=== PATIENT | female | born 1955 | race Caucasian/White ===

== ENCOUNTER 2019-05-11 06:30 | Day surgery (SDC) | payer BC ==
[2019-05-11] MEDS ORDERED: Ringers Lactate 1,000 ML IV ONE (07:10)
[2019-05-11] MEDS ORDERED: CEFAZOLIN/SWI 1gm 1 GM/10 ML SYR ONE (07:11)
[2019-05-11] MEDS ORDERED: PROPOFOL 200 MG/20 ML VIAL IV ONE (07:32)
[2019-05-11] MEDS ORDERED: MIDAZOLAM HCL 2 MG/2 ML INJ ONE (07:33)
[2019-05-11] MEDS ORDERED: FENTANYL CITR 100 MCG/2 ML ONE (07:33)
[2019-05-11] MEDS ORDERED: LIDOCAINE 2% MPF 5 ML VIAL ONE (07:33)
[2019-05-11] MEDS ORDERED: ONDANSETRON 4 MG/2 ML VIAL ONE (07:34)
[2019-05-11] MEDS ORDERED: BUPIVACAINE 0.5% PF 10 ML VIAL ONE (07:42)
--- NOTE | 2019-05-11 08:20 | P.BOP ---
Preoperative diagnosis: infected back subcutaneous mass Postoperative diagnosis: same Primary procedure: Excisional biopsy of infected back subcutaneous mass 6 x 6 x 1.7 cm Secondary procedure: with abscess drainage Estimated blood loss: <10cc Specimen: mass, culture Findings: infected back subcutaneous mass with abscess Anesthesia: General Complications: None Transferred to: Recovery Room Condition: Good
[2019-05-11] MEDS: HYDROMORPHONE HCL 1 MG/ML INJ ONE ×2 (08:36→08:41)
[2019-05-11 09:21] VITALS: BP 113/59; TEMP 98; O2SAT 98
[2019-05-11] MEDS ORDERED: CODEINE 30MG/APAP 300MG TAB ONE (09:53)
--- NOTE | 2019-05-11 10:42 | EKG ---
Test Date: 2019-05-11 Test Time: 07:25:18 Notch Machine Operator: CHRIS MEASUREMENT RESULTS: Intervals: Rate: 61 NV: 178 QRSD: 86 QT: 418 QTc: 420 [address] [place]: P: 59 NV: 178 QRS: 15 T: 55 INTERPRETIVE STATEMENTS: Normal sinus rhythm Normal ECG Compared to ECG 12/04/2014 20:28:38 No significant changes Electronically Signed On 05-11-19 10:41:20 CDT by Kameron Maynard
--- NOTE | 2019-05-11 15:02 | OP ---
Date of Procedure: 05/11/2019 Surgeon: Dakotah Johnson MD Preoperative Diagnoses: Infected back subcutaneous mass with abscess and cellulitis. Postoperative Diagnoses: Infected back subcutaneous mass with abscess and cellulitis. Procedure: Excisional biopsy of infected back, subcutaneous mass, 6 x 6 x 1.7 cm with drainage of an abscess. Specimen: Culture and infected mass. Anesthesia: General plus local. Indications: This is a case of a 64-year-old patient, who comes to us few hours ago to our office wi th a large infected mass with purulent discharge. Very tender, red. The patient wanted that excised with infection too, so benefits, alternatives, and risks of excisional biopsy, infected mass was ful ly explained to the patient, which include but are not limited to infection, bleeding, damage to deyvi cent structures, anesthesia complication, nonhealing wound, IN, and even . She also understands this may not relieve any symptoms. She might need more than one surgical intervention. She underst ood. She will require wound care. She signed a consent. Description Of Procedure: The patient was brought to the operating room, placed in supine position. Anesthesia was done without complication. Back area was prepped and draped in a sterile fashion. A time-out was called. The patient was placed in lateral decubitus position with proper protection, a nd then area was prepped and draped in a sterile fashion, and a wedge incision was made in the skin. The mass was large, so we had to move the entire mass. Deep inside we found an abscess that we had to drain also. This goes about 6 x 6 x 1.7 cm at least. Hemostasis obtained. Culture was obtained. Mass was sent for evaluation and pathology, and the area were packed with wet-to-dry dressing after injected for local anesthetic, and obtaining hemostasis. The patient tolerated the procedure well. The patient was sent to Recovery in stable condition. Diagnosis: Infected back subcutaneous mass. Procedure: Excisional biopsy of infected back subcutaneous mass. Disposition: Home. Discharge Instructions: Activity as tolerated. No heavy lifting. Followup in my office in 1 week. Call for appointment [phone]. The patient already has medications at home, so we will add lidocain e viscous, and she wants to use that the first few days on dressing changes. She may take a shower, dressings off, wet-to-dry normal saline daily. The patient stated that she has a family member who w ill do that for her. RG/NIYA Voice ID: [id number] Report ID: [id number]
== END 2019-05-11 10:15 | disposition home or self-care (01) ==
LOC: OR 06:30
PROVIDERS: ATTEND Surgery
PROC: 0JB70ZX Excision of Back Subcutaneous Tissue and Fascia, Open Approach, Diagnostic (ICD-10-PCS; principal; 2019-05-11 08:00)
DX: L72.0 Epidermal cyst (principal); Z01.812 Encounter for preprocedural laboratory examination; L03.312 Cellulitis of back [any part except buttock and flank]; L02.212 Cutaneous abscess of back [any part, except buttock and flank]; I11.9 Hypertensive heart disease without heart failure; F17.290 Nicotine dependence, other tobacco product, uncomplicated; Z79.899 Other long term (current) drug therapy
CPT/HCPCS: 87070; 87075; 87205; 88304; 93005; J0690; J1170; J2250; J2405; J2704; J3010

== ENCOUNTER 2019-10-06 13:56 | Emergency (ER) | payer BC, SELFPAY ==
[2019-10-06] MEDS ORDERED: KETOROLAC 30 MG/ML INJ ONE (15:08)
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
[2019-10-06 16:54] VITALS: BP 161/74; TEMP 98.7; O2SAT 98
== END 2019-10-06 16:23 | disposition home or self-care (01) ==
LOC: ER 13:56
DX: M54.13 Radiculopathy, cervicothoracic region (principal); V43.52XA Car driver injured in collision with other type car in traffic accident, initial encounter; Y93.89 Activity, other specified; Y92.410 Unspecified street and highway as the place of occurrence of the external cause
CPT/HCPCS: 72125

== ENCOUNTER 2023-04-16 06:40 | Day surgery (SDC) | payer OTHER ==
[2023-04-16] MEDS ORDERED: CEFAZOLIN SODIUM 1 GM/VIAL ONE (07:01)
[2023-04-16] MEDS ORDERED: Ringers Lactate 1,000 ML IV ONE ×3 (07:01→12:26)
[2023-04-16] MEDS ORDERED: ROCURONIUM 50 MG/5 ML VIAL IV ONE (07:55)
[2023-04-16] MEDS ORDERED: propofoL 200 MG/20 ML VIAL IV ONE (07:55)
[2023-04-16] MEDS ORDERED: LIDOCAINE 2% MPF 5 ML VIAL ONE (07:56)
[2023-04-16] MEDS ORDERED: FENTANYL CITR 250 MCG/5 ML ONE (07:56)
[2023-04-16] MEDS ORDERED: KETOROLAC 30 MG/ML INJ ONE (07:56)
[2023-04-16] MEDS ORDERED: ONDANSETRON 4 MG/2 ML VIAL ONE (07:56)
[2023-04-16] MEDS ORDERED: dexAMETHasone 10 MG/ML VIAL ONE (07:56)
[2023-04-16] MEDS ORDERED: MIDAZOLAM HCL 2 MG/2 ML INJ ONE (07:56)
[2023-04-16] MEDS ORDERED: SUCCINYLCHOLINE 20 MG/ML (10 ML) IV ONE (08:01)
[2023-04-16] MEDS ORDERED: EPHEDRINE SULF 50 MG/ML VIAL ONE (09:05)
[2023-04-16] MEDS ORDERED: LIDOCAINE HCL/EPINEPHRINE 20 ML MDV ONE (09:53)
[2023-04-16] MEDS ORDERED: Mastisol Adhesive Liq ONE (12:05)
--- NOTE | 2023-04-16 12:27 | P.BOP ---
Preoperative diagnosis: FRAN Postoperative diagnosis: FRAN Primary procedure: hypoglossal nerve stimulator [employer] Sales Specialist: NONE,NONE Estimated blood loss: 15-20ml Specimen: none Findings: textbook anatomy Anesthesia: General Complications: None Implants: Inspire Fluids & blood products: 2L Condition: Good
[2023-04-16] MEDS: HYDROMORPHONE HCL 1 MG/ML INJ ONE ×3 (12:51→13:04)
--- NOTE | 2023-04-16 13:37 | RAD REPORT ---
EXAM DESCRIPTION: RAD - Chest Pa And Lat (2 Views) - 04/16/2023 1:30 pm CLINICAL HISTORY: S/P INSERT OF HYPOGLOSSAL NERVE STIMULATOR (R)SIDE COMPARISON: Chest Pa And Lat (2 Views) dated 05/10/2019; CHEST SINGLE VIEW dated 12/04/2014; CHEST SIN GLE VIEW dated 09/22/2014; CHEST SINGLE VIEW dated 09/21/2014 TECHNIQUE: PA and lateral views of the chest were obtained. FINDINGS: The lungs are clear. Heart size is normal and central vasculature is within normal limits. No pleural effusion or pneumothorax seen. No acute bony finding noted. Right chest wall nerve stimul ator pack in place. IMPRESSION: No acute cardiopulmonary process.
--- NOTE | 2023-04-16 13:40 | RAD REPORT ---
EXAM DESCRIPTION: RAD - Neck Soft Tissue - 04/16/2023 1:30 pm CLINICAL HISTORY: Status post insertion of a hypoglossal nerve stimulator COMPARISON: CT neck 10/06/2019 TECHNIQUE: AP and lateral views of the neck soft tissues. FINDINGS: The right sided nerve stimulator electrode, terminates at the level of the upper right mignon e of the neck. No electrode discontinuity or abnormal kinking. Anterior plating hardware present at C 5-C7. Prevertebral soft tissues and upper airway are unremarkable. IMPRESSION: Satisfactory positioning of right-sided nerve stimulator electrode as above.
[2023-04-16] MEDS ORDERED: TRAMADOL HCL 50 MG TAB ONE (14:25)
[2023-04-16 16:03] VITALS: BP 133/68; TEMP 97.5; O2SAT 97
--- NOTE | 2023-04-20 07:30 | P.OP ---
Date of Service: 04/16/23 Surgeon: Dr. Lacy Patel Referring physician: Dr. Tinsley CPT: 23597 insertion of hypoglossal nerve neurostimulator electrode and generator and breathing sensor electrode Preoperative diagnosis: Obstructive sleep apnea with positive airway pressure intolerance Postoperative diagnosis: Same Anesthesia: General via endotracheal tube Estimated blood loss: 15 to 20 mL Complications: None Intraoperative findings: Textbook anatomy of the hypoglossal nerve, musculature and chest wall. Brief clinical history: This is a 68-year-old patient with a history of moderate to severe obstructive sleep apnea and an associated body mass index of 28.6. The patient was intolerant and unable to achieve benefit from positive pressure therapy. The patient has passed the clinical, polysomnographic, and endoscopic screening criteria and presents today for implant Procedure description: The patient was brought to the operating room and placed under general anesthesia via endotracheal intubation. The head of bed was turned 180 degrees. The patient's neck and external anatomy was palpated and examined with planned incisions marked with a surgical pen. Monitoring electrodes were placed within the genioglossus and hypoglossal muscle and connected to the NIM box for intraoperative nerve monitoring. The grounding electrode was placed in the patient's left shoulder. An additional electrode was placed in the right lower lip to monitor the marginal mandibular nerve. The patient's face, neck, and chest was prepped and draped in a sterile fashion with the head turned to the left for best exposure of the right neck. A modified submandibular incision was made through the skin, approximately 2 cm below the inferior aspect of the mandible. Dissection was carried down through the subcutaneous tissue and platysma. The platysma was divided and additional dissection was carried out for identification of the anterior/inferior border of the submandibular gland. The digastric tendon was identified. 2 silk sutures were placed in the digastric tendon to aid in inferior and anterior retraction. Dissection continued down into the digastric triangle and the posterior border of the mylohyoid muscle was freed and retracted anteriorly. With balanced retraction, the hypoglossal nerve was identified and carefully dissected up towards the floor of the mouth. The superior/posterior branches innervating the hyoglossus muscle were identified visually with anatomic clues and NIM stimulation. Once the anterior/inferior branches of the hypoglossal nerve were isolated, the cuff electrode for the hypoglossal nerve stimulator ([id number]; [id number]) was placed distal to these branches innervating the genioglossus, transverse, and vertical muscles. The stimulation lead was anchored to the digastric tendon using the 2 previously placed silk sutures. Slack between the cuff and the anchor was gently tucked deep to the submandibular gland. A second 5 cm incision was made in the right upper chest over the second intercostal space, approximately 3 cm lateral to the sternal margin. Dissection was carried down through the skin and subcutaneous tissue to the fascia of the pectoralis muscle. A suprafascial inferior pocket for the generator was created with blunt dissection and the LigaSure. The pectoralis major fascia was diss ected directly over the second intercostal space with subsequent blunt dissection through the muscle body. The pectoralis was retracted to expose the fatty layer just superficial to the external intercostal muscle. The fatty layer was carefully and bluntly dissected to expose the external intercostal muscles. A small fasciotomy through the external intercostals was performed and the respiratory sensing lead (C1778; [id number]) was advanced with the sensor facing the pleura into the interfascial plane between the external and internal intercostals. The sensing lead was anchored with 3-0 silk to the fascia of the external intercostals. Secondary anchoring sutures of 3-0 silk were placed to the pectoralis major fascia, allowing adequate slack between the anchors. The stimulation lead was then tunneled in a subplatysmal plane with blunt dissection under direct visualization and brought out to the subclavicular pocket where both the stimulation lead and respiratory sensing lead were connect ed to the implantable pulse generator, using the 2 person, 3 handed approach. The implantable pulse generator (C1767; [id number]) was placed in the subclavicular subcutaneous pocket ensuring lead body was deep to the generator and secured with air knots to the pectoralis fascia using 2-0 silk suture. Diagnostic evaluation confirmed good placement of the stimulation cuff as demonstrated by activation of the genioglossus, and transverse and vertical muscles resulting in unhindered, stiffened tongue protrusion confirmed visually. Diagnostic evaluation revealed an adequate initial sensing. The orientation of the sensing lead was confirmed correct. The lead was palpated and felt to be somewhat inferior and medial. With gentle pressure the lead was repositioned slightly more laterally and superiorly but removal was not required. After this modification, diagnostic evaluation confirmed good respiratory sensor placement as demonstrated by sensing waveform with good rise and fall associated with patient respirations. All the wounds were thoroughly irrigated and closed in 3 layers with deep Polysorb sutures and 4-0 Monocryl subcuticular sutures. Mastisol and Steri- Strips were applied followed by pressure dressings. The patient was awakened, extubated, and transferred to the recovery room in stable condition. I was present for and performed the entire procedure. All sponge and needle counts were confirmed correct by the operating room staff prior to final closure. Postoperative plan: The patient will be discharged home later today in the care of her family and follow-up with Dr. Patel in 10 days for wound check and suture removal if required. She will follow-up with the prospecting observer in about 6 weeks for planned activation of the device.
== END 2023-04-16 14:53 | disposition home or self-care (01) ==
LOC: OR 06:40
PROVIDERS: ATTEND Otolaryngology
PROC: XWHD7Q7 Insertion of Neurostimulator Lead into Mouth and Pharynx, Via Natural or Artificial Opening, New Technology Group 7 (ICD-10-PCS; principal; 2023-04-16 08:00)
DX: G47.33 Obstructive sleep apnea (adult) (pediatric) (principal); J45.909 Unspecified asthma, uncomplicated; G47.419 Narcolepsy without cataplexy; I10 Essential (primary) hypertension; E66.3 Overweight; E03.9 Hypothyroidism, unspecified; M19.90 Unspecified osteoarthritis, unspecified site; F90.9 Attention-deficit hyperactivity disorder, unspecified type; Z99.81 Dependence on supplemental oxygen; Z79.899 Other long term (current) drug therapy; Z87.891 Personal history of nicotine dependence; Z85.828 Personal history of other malignant neoplasm of skin; Z83.3 Family history of diabetes mellitus
CPT/HCPCS: 71046; 70360; 64582; J2704; J2001; J2250; J3010; J1100; J1170; J2405; J7120 ×3; J0690

== ENCOUNTER 2024-09-16 18:29 | Inpatient (IN) | payer OTHER ==
[2024-09-16] MEDS ORDERED: ONDANSETRON 4 MG/2 ML VIAL ONE (19:30)
[2024-09-16] MEDS ORDERED: NA CHLORIDE 0.9% 1,000 ML ONE (19:30)
[2024-09-16] MEDS ORDERED: FAMOTIDINE 20 MG/2 ML VIAL IV ONE (19:30)
[2024-09-16] MEDS ORDERED: MORPHINE 4 MG/ML SYR ONE (19:30)
[2024-09-16 19:36] LABS: Absolute Eosinophils 0.1 K/uL (0-0.5); Absolute Lymphocytes (CBC) 1.6 K/uL (0.7-4.9); Absolute Monocytes 0.6 K/uL (0.1-1.3); Absolute Neutrophil 4.2 K/uL (1.8-8.0); Basophils % 0.4 % (0-1.3); Eosinophils % 1.1 % (0-4.4); Hematocrit 39.3 % (36.0-45.0); Hemoglobin 13.3 g/dL (12.0-15.0); Lymphocytes % 24.4 % (15.3-44.8); MCH 30.2 pg (27.0-35.0); MCHC 33.9 g/dL (32.0-36.0); MPV 8.2 fL (7.6-11.3); Neutrophils % 65.1 % (41.7-73.7); Nucleated Red Blood Cells % 0.1 % (0-0); Platelets 225 thou/uL (152-406); RBC Red Blood Cell Count 4.42 M/uL (3.86-4.86); Red Cell Distribution Width 12.8 % (12.1-15.2)
[2024-09-16 19:40] LABS: PT Prothrombin Time 11.3 SECONDS (9.4-12.5); Protime INR 1.01
[2024-09-16 19:49] LABS: Sqamous Epithelial <5 /HPF (None Seen); Urine Bacteria <20 /HPF (<20); Urine Bilirubin NEGATIVE (Negative); Urine Blood Negative (Negative); Urine Clarity Clear (Clear); Urine Color Light-Yellow (Yellow); Urine Culture Reflex Order NOT NEEDED; Urine Glucose NEGATIVE (Negative); Urine Ketones NEGATIVE (Negative); Urine Microscopic Reflex YN ORDER UMIC; Urine Mucus Slight /HPF (None Seen); Urine Nitrite NEGATIVE (Negative); Urine Protein TRACE (Negative); Urine RBC <5 /HPF (None Seen); Urine Urobilinogen Normal (Normal); Urine WBC <5 /HPF (<5); Urine pH 7.5 (5.0-7.0)
[2024-09-16 19:53] LABS: ALT/SGPT 35 U/L (13-56); AST/SGOT 19 U/L (15-37); Albumin 3.6 g/dL (3.4-5.0); Albumin/Globulin Ratio 1.1 (1.1-1.8); Alkaline Phosphatase 131 U/L (45-117); BUN Blood Urea Nitrogen 15 mg/dL (7-18); Bicarbonate 24 mEq/L (21-32); Bilirubin Total 0.2 mg/dL (0.2-1.0); Globulin 3.4 g/dL (2.3-3.5); Glomerular Filtration Rate 81 ml/min (=/>90); Glucose Level 117 mg/dL (74-106); Lipase 63 U/L (13-75); Magnesium 2.1 mg/dL (1.6-2.4); NT PRO-BNP 196 pg/mL (<125); Sodium Level 136 mEq/L (136-145); Troponin High Sensitivity 5.6 pg/mL (<58.9)
[2024-09-16 19:59] LABS: Bilirubin Direct < 0.2 mg/dL (0-0.2)
--- NOTE | 2024-09-16 20:02 | RAD REPORT ---
EXAMINATION: ONE VIEW CHEST XR CLINICAL INDICATION: Female, 69 years old.,CHEST PAIN TECHNIQUE: Frontal chest projection is submitted. Examination is limited by patient positioning and t echnique. COMPARISON: 04/16/2023 FINDINGS: The lungs are well inflated and clear. No pneumothorax or sizable effusion. The heart is normal in s ize. Right chest wall nerve stimulator in place. IMPRESSION: No acute intrathoracic abnormalities.
--- NOTE | 2024-09-16 21:16 | RAD REPORT ---
EXAM: CT Angio Aorta For Dissection HISTORY: [facility] n/a chest pain, radiates to neck and jaw, HTN Bed Name: 20 COMPARISON: None TECHNIQUE: Multiple contiguous axial images were obtained a CTA of the chest and abdomen with contras t per aortic dissection protocol. Sagittal and coronal 3-D MIP reformats were performed. One or more of the following dose reduction techniques were used: Automated exposure control, adjustment of the mA and kV according to patient size, and iterative reconstruction. Unless otherwise specified, incidental findings do not require dedicated imaging follow-up. FINDINGS: PULMONARY ARTERIES: Normal in caliber without filling defects to suggest pulmonary emboli. MEDIASTINUM: No hilar or mediastinal lymphadenopathy. LUNGS: No focal infiltrates or masses. PLEURAL SPACE: No pleural effusion or pneumothorax. LIVER: Unremarkable. KIDNEYS: Unremarkable. SPLEEN: Unremarkable. PANCREAS: Unremarkable. BOWEL: Unremarkable. RETROPERITONEUM: No lymphadenopathy BONES: Degenerative changes in the spine. ASCENDING THORACIC AORTA: Normal caliber without evidence of dissection or aneurysmal dilatation. DESCENDING THORACIC AORTA: Normal caliber without evidence of dissection or aneurysmal dilatation. ABDOMINAL AORTA: Normal caliber without evidence of dissection or aneurysmal dilatation. Up to moderate atherosclerotic calcific plaque along the thoracic and abdominal aorta. CELIAC TRUNK: Patent SMA: Patent with mild to moderate narrowing at the origin MATTHIEU: Patent RENAL ARTERIES: Bilateral single renal arteries with moderate calcific atherosclerotic plaque, contri buting to mild narrowing of the right and moderate narrowing of the left IMPRESSION: No evidence of thoracic or abdominal aortic aneurysm or dissection. Up to moderate atherosclerotic changes, contributing to mild to moderate degrees of narrowing at the origins of the left more than right renal arteries and SMA.
[2024-09-16] MEDS ORDERED: ASPIRIN 81 MG CHEWABLE TABLET ONE (21:26)
--- NOTE | 2024-09-16 21:26 | ER ---
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 18:35 Coronavirus screen: At this time, the client does not indicate any symptoms associated aa5 with coronavirus-19. Ebola Screen: Patient denies travel to an Ebola-affected area in the 21 days before illness onset. Initial Sepsis Screen: Does the patient meet any 2 criteria? No. Patient's initial sepsis screen is negative. Does the patient have a suspected source of infection? No. Patient's initial sepsis screen is negative. Risk Assessment: Do you want to hurt yourself or someone else? Patient reports no desire to harm self or others. Onset of symptoms was September 16, 2024. 18:35 Acuity: MICHELLE 2 aa5 18:35 Method Of Arrival: Ambulatory aa5 Historical: - Allergies: 18:35 No Known Allergies; aa5 - Home Meds: 18:48 Methocarbamol Oral [Active]; Butalbital Compound Oral [Active]; Bupropion Oral aa5 [Active]; Lasix Oral [Active]; Potassium Chloride Oral [Active]; Aspirin Oral [Active]; armodafinil oral [Active]; thyroid [Active]; - PMHx: 18:35 Hypertension; Leg swelling (Unknown); Narcolepsy (Unknown); Hypothyroidism; migraines; aa5 - Immunization history:: Adult Immunizations unknown. - Infectious Disease History:: Denies. - Social history:: Smoking status: Patient denies any tobacco usage or history of. - Family history:: not pertinent. - Hospitalizations: : No recent hospitalization is reported. Screenin:[address] [facility] ED Fall Risk Assessment (Adult) History of falling in the last 3 months, me1 including since admission No falls in past 3 months (0 pts) Confusion or Disorientation No (0 pts) Intoxicated or Sedated No (0 pts) Impaired Gait No (0 pts) Mobility Assist Device Used No (0 pt) Altered Elimination No (0 pt) Score/Fall Risk Level 0 - 2 = Low Risk Maintained a safe environment, Provided non-skid footwear, Hourly rounding (assess needs \T\ fall precautionary measures) done. Abuse screen: Denies threats or abuse. Nutritional screening: No deficits noted. Tuberculosis screening: No symptoms or risk factors identified. 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 Pain: Complains of pain in right breast Pain radiates to right jaw Pain currently is 8 out of 10 on a pain scale. Quality of pain is described as sharp, shooting, Pain began suddenly, Is continuous. Neuro: Level of Consciousness is awake, alert, obeys commands, Oriented to person, place, time, situation, Appropriate for age. Cardiovascular: Patient's skin is warm and dry. Cardiovascular: Reports chest pain, diaphoresis, shortness of breath. Respiratory: Airway is patent Respiratory effort is even, unlabored, Respiratory pattern is regular, symmetrical. GI: No signs and/or symptoms were reported involving the gastrointestinal system. : No signs and/or symptoms were reported regarding the genitourinary system. EENT: No signs and/or symptoms were reported regarding the EENT system. Derm: No signs and/or symptoms reported regarding the dermatologic system. Musculoskeletal: Circulation, motion, and sensation intact. Capillary refill < 3 seconds. Vital Signs: 18:35 BP 213 / 88; Pulse 80; Resp 18 S; Temp 98(TE); Pulse Ox 100% on R/A; aa5 19:00 BP 207 / 90; Pulse 69; Resp 18; Pulse Ox 100% ; me1 20:00 BP 212 / 91; Pulse 73; Resp 16; Pulse Ox 95% ; me1 20:33 Pain 3/10; me1 21:00 BP 158 / 80; Pulse 69; Resp 18; Pulse Ox 95% ; me1 21:59 BP 150 / 78; Pulse 66; Resp 17; Temp 98.1; Pulse Ox 97% ; me1 22:52 BP 165 / 73; Pulse 70; Resp 16; Pulse Ox 98% ; me1 20:33 Pain Scale: Adult ks1 ED Course: 18:35 Patient arrived in ED. sj2 18:35 Arm band placed on. aa5 18:44 Triage completed. aa5 18:44 Ranjeet Garza MD is Attending Physician. courtney 18:52 EKG done, by ED staff, reviewed by Ranjeet Garza MD. em1 18:54 China Kim, RN is Primary Nurse. me1 19:00 Attending Physician role handed off by Ranjeet Garza MD rn 19:00 Bernard Martinez MD is Attending Physician. rn 19:00 Patient has correct armband on for positive identification. Bed in low position. Call me1 light in reach. Side rails up X2. Provided Education on: POC. Verbalized understanding.. Client placed on continuous cardiac and pulse oximetry monitoring. NIBP monitoring applied. Pulse ox on. NIBP on. 19:00 Patient maintains SpO2 saturation greater than 95% on room air. me1 19:20 No provider procedures requiring assistance completed. Urine collected: clean catch [facility] specimen, cloudy. Initial lab(s) drawn, by ks, sent to lab. Inserted saline lock: 22 gauge in right antecubital area, using aseptic technique. 19:24 Urinalysis w/ reflexes Sent. me1 19:24 Lipase Sent. me1 19:24 Basic Metabolic Panel Sent. me1 19:24 CBC with Diff Sent. me1 19:24 LFT's Sent. me1 19:24 Magnesium Sent. me1 19:24 NT PRO-BNP Sent. me1 19:24 PT-INR Sent. me1 19:24 Troponin HS Sent. me1 19:33 XRAY Chest (1 view) In Process Unspecified. EDMS 20:36 CT Aorta for Dissection In Process Unspecified. EDMS 21:26 Prince Clements MD is Hospitalizing Provider. rn 22:00 Patient admitted, IV remains in place. ks1 Administered Medications: 19:06 CANCELLED (Duplicate Order): aspirinchewable tablet 324 mg PO once; 81 mg tablets x 4 rn 19:38 Drug: NS 0.9% IV 1000 ml IV at 125 ml/hr continuous Route: IV; Rate: 125 ml/hr; Site: [facility] right antecubital; 22:00 Follow up: IV Status: Infusion continued upon admission me1 19:38 Drug: morphine IVP or IV 4 mg IVP once over 4 mins Route: IVP; Infused Over: 4 mins; me1 Site: right antecubital; 20:33 Follow up: Pain 3/10 Adult; Response: No adverse reaction; Pain is decreased me1 19:38 Drug: Ondansetron IVP 4 mg IVP once; over 2 minutes Route: IVP; Site: right antecubital;me1 20:33 Follow up: Response: No adverse reaction; Nausea is decreased me1 19:38 Drug: Famotidine IVP 20 mg IVP once; dilute with 10 mL 0.9% NaCl; give over 2 minutes me1 Route: IVP; Site: right antecubital; 20:33 Follow up: Response: No adverse reaction me1 21:30 Drug: Aspirin PO Chewable Tablet 324 mg PO once; 81 mg tablets x 4 Route: PO; me1 21:30 Follow up: Response: No adverse reaction me1 Medication: 19:00 VIS not applicable for this client. me1 Outcome: 21:26 Decision to Hospitalize by Provider. rn 22:14 Admitted to Tele accompanied by [place], via wheelchair, room 409, with chart, Report me1 called to faxed, receipt confirmed with Gloria 22:14 Condition: stable 22:14 Instructed on the need for admit, 22:58 Patient left the ED. 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 aa5 22:15 22:00 Admitted to Med/surg accompanied by tech, via wheelchair, room 205, with chart, me1 Report called to faxed, receipt confirmed with Jennifer. me1 22:15 22:00 Condition: stable ks1 me1 22:15 22:00 Instructed on the need for admit, ks1 me1
--- NOTE | 2024-09-16 21:26 | EDPHYS ---
Physician Documentation [facility] Name: Morenita Willingham Age: 69 yrs Sex: Female : 1955 Arrival Date: 09/16/2024 Time: 18:29 Bed 20 Private MD: ED Physician Brenard Martinez HPI: 09/16 19:08 This 69 yrs old Female presents to ER via Ambulatory with complaints of Chest rn Pain. 19:08 The patient or guardian reports chest pain that is located primarily in the substernal rn area. Onset: at 17:00. The pain radiates to Associated signs and symptoms: Pertinent negatives: abdominal pain, cough, diaphoresis, lower extremity swelling, shortness of breath. The chest pain is described as sharp, stabbing. Duration: The patient or guardian reports a single episode, that is still ongoing. Modifying factors: The symptoms are alleviated by nothing. the symptoms are aggravated by nothing. Severity of pain: At its worst the pain was moderate in the emergency department the pain has improved. The patient has not experienced similar symptoms in the past. The patient has not recently seen a physician. Pt reports chest pain, right sided, under right breast, radiates to right neck and teeth. No sob. No new swelling. No fever or productive cough. No abd pain/nausea/vomiting/diarrhea. . Historical: - Allergies: 18:35 No Known Allergies; aa5 - Home Meds: 18:48 Methocarbamol Oral [Active]; Butalbital Compound Oral [Active]; Bupropion Oral aa5 [Active]; Lasix Oral [Active]; Potassium Chloride Oral [Active]; Aspirin Oral [Active]; armodafinil oral [Active]; thyroid [Active]; - PMHx: 18:35 Hypertension; Leg swelling (Unknown); Narcolepsy (Unknown); Hypothyroidism; migraines; aa5 - Immunization history:: Adult Immunizations unknown. - Infectious Disease History:: Denies. - Social history:: Smoking status: Patient denies any tobacco usage or history of. - Family history:: not pertinent. - Hospitalizations: : No recent hospitalization is reported. ROS: 19:08 Constitutional: Negative for fever, chills, and weight loss, Neck: + neck pain health care attorney: + chest pain Respiratory: Negative for shortness of breath, cough, wheezing, and pleuritic chest pain, Abdomen/GI: Negative for abdominal pain, nausea, vomiting, diarrhea, and constipation, Back: Negative for injury and pain, MS/Extremity: Negative for injury and deformity, Skin: Negative for injury, rash, and discoloration, Neuro: Negative for headache, weakness, numbness, tingling, and seizure, Exam: 19:08 Constitutional: This is a well developed, well nourished patient who is awake, alert, rn and in no acute distress. Cardiovascular: Regular rate and rhythm. No pulse deficits. Respiratory: No increased work of breathing, no retractions or nasal flaring. Abdomen/GI: soft, non-tender Back: No spinal tenderness. No costovertebral tenderness. Full range of motion. Skin: Warm, dry, no cyanosis MS/ Extremity: non-pitting edema bilateral lower ext, equal circumference. Neuro: Awake and alert, GCS 15 Vital Signs: 18:35 BP 213 / 88; Pulse 80; Resp 18 S; Temp 98(TE); Pulse Ox 100% on R/A; aa5 19:00 BP 207 / 90; Pulse 69; Resp 18; Pulse Ox 100% ; me1 20:00 BP 212 / 91; Pulse 73; Resp 16; Pulse Ox 95% ; me1 20:33 Pain 3/10; me1 21:00 BP 158 / 80; Pulse 69; Resp 18; Pulse Ox 95% ; me1 21:59 BP 150 / 78; Pulse 66; Resp 17; Temp 98.1; Pulse Ox 97% ; me1 22:52 BP 165 / 73; Pulse 70; Resp 16; Pulse Ox 98% ; me1 20:33 Pain Scale: Adult me1 MDM: 18:44 Medical Screening Exam initiated courtney 21:23 Differential diagnosis: acute myocardial infarction, coronary artery disease chest wall rn pain, pneumothorax, stable angina, thoracic aortic disection. The patient was given aspirin in the Emergency Department. 21:25 HEART Score: History: Moderately Suspicious (1), ECG: Normal (0), Age: > or = 65 years rn (2), Risk Factors: 1 or 2 risk factors (1), Troponin: < or = 1 x Normal Limit (0), Total Score = 4. Data reviewed: vital signs, nurses notes, lab test result(s), EKG, radiologic studies, CT scan, plain films, and as a result, I will admit patient. Counseling: I had a detailed discussion with the patient and/or guardian regarding the historical points, exam findings, and any diagnostic results supporting the discharge/admit diagnosis, lab results, radiology results, the need for further work-up and treatment in the hospital. Response to treatment: the patient's symptoms have markedly improved after treatment, and as a result, I will admit patient. 09/16 18:45 Order name: Basic Metabolic Panel; Complete Time: 20:18 [facility] 09/16 18:45 Order name: CBC with Diff; Complete Time: 20:18 [facility] 09/16 18:45 Order name: LFT's; Complete Time: 20:18 [facility] 09/16 18:45 Order name: Magnesium; Complete Time: 20:18 [facility] 09/16 18:45 Order name: NT PRO-BNP; Complete Time: 20:18 [facility] 09/16 18:45 Order name: PT-INR; Complete Time: 20:18 [facility] 09/16 18:45 Order name: Troponin HS; Complete Time: 20:18 [facility] 09/16 18:45 Order name: Lipase; Complete Time: 20:18 [facility] 09/16 18:45 Order name: Urinalysis w/ reflexes; Complete Time: 20:18 [facility] 09/16 21:53 Order name: Magnesium [facility] 09/16 21:53 Order name: Phosphorus [facility] 09/16 21:53 Order name: Urinalysis w/ reflexes [facility] 09/16 21:53 Order name: Lipid Profile [facility] 09/16 21:53 Order name: Lipid Profile [facility] 09/16 21:53 Order name: Troponin High Sensitivity [facility] 09/16 21:53 Order name: Troponin High Sensitivity [facility] 09/16 21:53 Order name: Troponin High Sensitivity [facility] 09/16 21:53 Order name: Troponin High Sensitivity [facility] 09/16 21:53 Order name: Troponin High Sensitivity [facility] 09/16 18:45 Order name: XRAY Chest (1 view); Complete Time: 20:18 [facility] 09/16 19:06 Order name: CT Aorta for Dissection; Complete Time: 21:18 09/16 21:54 Order name: Echo with Doppler [facility] 09/16 18:45 Order name: EKG; Complete Time: 18:46 [facility] 09/16 21:53 Order name: CONS Physician Consult [facility] 09/16 21:53 Order name: EKG Electrocardiogram [facility] 09/16 21:53 Order name: EKG Electrocardiogram [facility] 09/16 18:45 Order name: Cardiac monitoring; Complete Time: 19:38 [facility] 09/16 18:45 Order name: EKG - Nurse/Tech; Complete Time: 18:52 [facility] 09/16 18:45 Order name: IV Saline Lock; Complete Time: 19:24 [facility] 09/16 18:45 Order name: Labs collected and sent; Complete Time: 19:24 [facility] 09/16 18:45 Order name: O2 Per Protocol; Complete Time: 19:24 [facility] 09/16 18:45 Order name: O2 Sat Monitoring; Complete Time: 19:24 [facility] Administered Medications: 19:06 CANCELLED (Duplicate Order): aspirinchewable tablet 324 mg PO once; 81 mg tablets x 4 rn 19:38 Drug: NS 0.9% IV 1000 ml IV at 125 ml/hr continuous Route: IV; Rate: 125 ml/hr; Site: me1 right antecubital; 22:00 Follow up: IV Status: Infusion continued upon admission me1 19:38 Drug: morphine IVP or IV 4 mg IVP once over 4 mins Route: IVP; Infused Over: 4 mins; me1 Site: right antecubital; 20:33 Follow up: Pain 3/10 Adult; Response: No adverse reaction; Pain is decreased me1 19:38 Drug: Ondansetron IVP 4 mg IVP once; over 2 minutes Route: IVP; Site: right antecubital;me1 20:33 Follow up: Response: No adverse reaction; Nausea is decreased me1 19:38 Drug: Famotidine IVP 20 mg IVP once; dilute with 10 mL 0.9% NaCl; give over 2 minutes me1 Route: IVP; Site: right antecubital; 20:33 Follow up: Response: No adverse reaction me1 21:30 Drug: Aspirin PO Chewable Tablet 324 mg PO once; 81 mg tablets x 4 Route: PO; me1 21:30 Follow up: Response: No adverse reaction me1 Disposition Summary: 09/16/24 21:26 Hospitalization Ordered Notes: Hospitalization Status: Observation rn Provider: Prince Starr rn Location: Telemetry/MedSurg (observation) rn Condition: Stable rn Problem: new rn Symptoms: have improved rn Bed/Room Type: Standard rn Room Assignment: 409(09/16/24 22:13) af3 Diagnosis - Chest pain, unspecified rn Forms: - Medication Reconciliation Form rn - SBAR form rn - Leadership Thank You Letter rn Signatures: Dispatcher [employer] Ranjeet Kaba MD MD cha Nieto, Roman, MD MD rn Calderon, Yudi, RN RN aa5 China Kim, RN RN ny1 Tessie Webster af3 Corrections: (The following items were deleted from the chart) 18:46 18:46 BASIC METABOLIC PANEL+C.LAB.BRZ ordered. EDMS EDMS 18:46 18:46 CBC+H.LAB.BRZ ordered. EDMS EDMS 18:46 18:46 HEPATIC FUNCTION+C.LAB.BRZ ordered. EDMS EDMS 18:46 18:46 MAGNESIUM+C.LAB.BRZ ordered. EDMS EDMS 18:46 18:46 PROBNP+C.LAB.BRZ ordered. EDMS EDMS 18:46 18:46 PROTIME (+INR)+COAG.LAB.BRZ ordered. EDMS EDMS 18:46 18:46 Troponin High Sensitivity+C.LAB.BRZ ordered. EDMS EDMS 18:46 18:46 LIPASE+C.LAB.BRZ ordered. EDMS EDMS 18:46 18:46 Urinalysis+U.LAB.BRZ ordered. EDMS EDMS 19:06 18:46 Aspirin PO Chewable Tablet 324 mg PO once; 81 mg tablets x 4 ordered. courtney schulz 19:11 19:08 Constitutional: This is a well developed, well nourished patient who is awake, rn alert, and in no acute distress. Cardiovascular: Regular rate and rhythm. No pulse deficits. Respiratory: No increased work of breathing, no retractions or nasal flaring. Abdomen/GI: soft, non-tender MS/ Extremity: non-pitting edema bilateral lower ext, equal circumference. Neuro: Awake and alert, GCS 15 rn 21:55 21:26 rn af3 22:13 21:55 205 af3 af3
[2024-09-16] MEDS ORDERED: NITROGLYCERIN 0.4 MG/TAB SL PRN (21:48)
[2024-09-16] MEDS ORDERED: ONDANSETRON 4 MG/2 ML VIAL IV PRN (21:48)
--- NOTE | 2024-09-16 22:22 | P.HP ---
Certification for Inpatient Patient admitted to: Observation With expected LOS: <2 Midnights Practitioner: I am a practitioner with admitting privileges, knowledge of patient current condition, hospital course, and medical plan of care. Services: Services provided to patient in accordance with Admission requirements found in Title 42 Section 412.3 of the Code of Federal Regulations Patient History Date of Service: 09/16/24 Reason for admission: chest pain History of Present Illness: Patient is a 69 year old female with a PMH of FRAN, HTN and HLD non- compliant on anti-lipid medicine. She presents to the ER with chest pain. She is reporting a substernal chest pain radiating to her R inframmary space, and neck. She has been having lower extremtiy swelling and shortness of breath as well. She has no history of CAD and has never had any stress test or angiographic workup. She was severely hypertensive in the ER with SBP 213 mmHg. She responded to the initial intervention and now has a BP of 158 mmHg. Her troponin and negative are normal. BNP of 192. Allergies No Known Allergies Allergy (Verified 04/16/23 07:15) Home Medications: Albuterol Sulfate [Albuterol Sulfate Hfa] 2 puff IH Q4HP PRN 03/09/23 Budesonide [Pulmicort] 0.5 mg IH BIDP PRN 03/09/23 Butalb/Acetaminophen/Caffeine [Qporlh-Dttpdfgs-Noyy 50-325-40] 1 - 2 tab PO Q8HP PRN 03/09/23 Fluticasone [Flonase 50mcg Nasal [place]] 2 sprays NS DAILY 03/09/23 Losartan/Hydrochlorothiazide [Losartan-Hctz 50-12.5 mg Tab] 1 each PO DAILY Thyroid,Pork [Multi Slide Machine Tender Thyroid 120] 120 mg PO DAILY 03/09/23 armodafiniL [Armodafinil] 250 mg PO DAILY 03/09/23 methocarbamoL [Methocarbamol] 1 tab PO Q12HP PRN 03/09/23 - Past Medical/Surgical History Diabetic: No -: narcolepsy 1992 -: sleep apnea dx 2006 -: TIA -: -: hysterectomy -: appendectomy -: gallbladder removal -: PFO enclosure - Social History Alcohol use: Yes CD- Drugs: No Caffeine use: No Physical Examination - Physical Exam General: In no apparent distress HEENT: Atraumatic, Normocephalic Respiratory: Clear to auscultation bilaterally, Normal air movement Cardiovascular: Normal pulses, Regular rate/rhythm, Normal S1 S2, Other (Bilateral non-pitting edema), Edema Musculoskeletal: No clubbing, No swelling, No contractures, No erythema Neurological: Normal speech - Studies Laboratory Data (last 24 hrs) 09/16/24 09/16/24 09/16/24 19:17 19:17 19:17 WBC 6.40 Hgb 13.3 Hct 39.3 Plt Count 225 PT 11.3 INR 1.01 Sodium 136 Potassium 4.0 BUN 15 Creatinine 0.79 Glucose 117 H Magnesium 2.1 Total Bilirubin 0.2 AST 19 ALT 35 Alkaline Phosphatase 131 H Lipase 63 Assessment and Plan - Problems (Diagnosis) (1) Hypertensive emergency Current Visit: Yes Status: Acute (2) Chest pain Current Visit: Yes Status: Acute (3) FRAN (obstructive sleep apnea) Current Visit: Yes Status: Acute (4) Hyperlipidemia Current Visit: Yes Status: Acute - Plan Assessment Patient is a 69 year old female who is being admitted for chest pain. Her first trop is negative, EKG normal. She was hypertensive on arrival with SBP 213 mmHG. Chest pain Hypertensive emergency Lower extremity edema HLD FRAN PLAN: Will admit under observation with telemetry Trend troponin Will obtain TTE and lipid panel. Will check for HbA1c as well Stop continuous IV fluid PRN IV hydralazine ordered Cardiology consulted Resume home meds once reconciled - Advance Directives Does patient have a Living Will: No Does patient have a Durable POA for Healthcare: No
[2024-09-16] MEDS: HYDRALAZINE HCL 20 MG/ML VIAL IV PRN (23:19)
[2024-09-16 23:54] VITALS: BMI 30.1
[2024-09-17] MEDS ORDERED: methocarbamoL 750 MG TAB PO PRN (00:48)
[2024-09-17] MEDS: ALBUTEROL 2.5 MG/3 ML NEB SOL NEB SCH (02:25)
[2024-09-17] MEDS: IPRATROPIUM BROM 0.5MG/2.5ML NEB SCH (02:25)
[2024-09-17] MEDS: THYROID 180 MG PO SCH (05:26)
[2024-09-17 06:43] LABS: Magnesium 2.2 mg/dL (1.6-2.4)
[2024-09-17] MEDS: FUROSEMIDE 20 MG TABLET PO SCH (07:49)
[2024-09-17] MEDS: ACETAMIN/CAFFEINE/BUTALB TAB PO PRN (08:03)
[2024-09-17] MEDS: ENOXAPARIN 40 MG/0.4 ML SQ SCH (08:09)
[2024-09-17] MEDS: ARMODAFINIL 250 MG PO SCH (08:11)
[2024-09-17] MEDS: ASPIRIN 81 MG CHEWABLE TABLET PO SCH (08:11)
[2024-09-17] MEDS ORDERED: ASPIRIN EC 81 MG TAB PO SCH (09:00)
[2024-09-17] MEDS: METOPROLOL TAR 50 MG TAB PO SCH ×2 (09:07→20:22)
--- NOTE | 2024-09-17 13:18 | P.PN ---
Subjective Date of Service: 09/17/24 Patient clinically doing much better. Blood pressure improved. Chest pain better. However, she still continues to have chest discomfort. In the setting of this acute episode of hypertension will go ahead and do stress test and echo in the morning Review of Systems 10-point ROS is otherwise unremarkable Physical Examination - Vital Signs Temperature: 97.5 F Blood Pressure: 139/68 Pulse: 66 Respirations: 14 Pulse Ox (%): 97 - Physical Exam General: Alert, In no apparent distress, Oriented x3 HEENT: Atraumatic, PERRLA, EOMI Neck: Supple, JVD not distended Respiratory: Clear to auscultation bilaterally, Normal air movement Cardiovascular: Regular rate/rhythm, Normal S1 S2 Gastrointestinal: Normal bowel sounds, No tenderness Musculoskeletal: No tenderness Integumentary: No rashes Neurological: Normal speech, Normal tone, Normal affect Lymphatics: No axilla or inguinal lymphadenopathy - Studies Laboratory Data (last 24 hrs) 09/16/24 09/16/24 09/16/24 19:17 19:17 19:17 WBC 6.40 Hgb 13.3 Hct 39.3 Plt Count 225 PT 11.3 INR 1.01 Sodium 136 Potassium 4.0 BUN 15 Creatinine 0.79 Glucose 117 H Magnesium 2.1 Total Bilirubin 0.2 AST 19 ALT 35 Alkaline Phosphatase 131 H Lipase 63 Medications List Reviewed: Yes Assessment & Plan - Problems (Diagnosis) (1) Chest pain, rule out acute myocardial infarction Current Visit: Yes Status: Acute (2) Hyperlipidemia Current Visit: Yes Status: Acute (3) Hypertensive emergency Current Visit: Yes Status: Acute (4) FRAN (obstructive sleep apnea) Current Visit: Yes Status: Acute (5) Palpitations Current Visit: No Status: Acute - Plan -High-sensitivity troponin x 3; if negative then proceed with stress test -Cardiology consultation pending -Echocardiogram and stress test in the morning -Repeat EKG -Work-up for other etiologies of cardiac chest pain if troponins remain negative -Lipid profile -Vice President Of Software Engineering regarding modifying risk for cardiac disease Discharge Plan: Home Plan to discharge in: 24 Hours - Advance Directives Does patient have a Living Will: No Does patient have a Durable POA for Healthcare: No - Code Status/Comfort Care Code Status Assessed: Yes Code Status: Full Code Critical Care: No Time Spent Managing PTS Care (In Minutes): 35
--- NOTE | 2024-09-17 14:32 | P.CNS ---
Date of Consult: 09/17/24 Chief Complaint: chest pain History of Present Illness: Patient with PMH of HTN, SVT s/p ablation, presented with right sided chest pain/epigastric pain and jaw pain that started yesterday, her BP was very high, denies any other cardiac symptoms. Allergies No Known Allergies Allergy (Verified 04/16/23 07:15) Home medications list reviewed: Yes Home Medications: Butalb/Acetaminophen/Caffeine [Gcfank-[id number] 50-325-40] 1 - 2 tab PO Q8HP PRN 03/09/23 Thyroid,Pork [Rotating Equipment Specialist Thyroid 120] 180 mg PO DAILY 03/09/23 armodafiniL [Armodafinil] 250 mg PO DAILY 03/09/23 methocarbamoL [Methocarbamol] 1 tab PO Q12HP PRN 03/09/23 Aspirin 81 mg PO DAILY 09/16/24 Furosemide 20 mg PO DAILY 09/16/24 Metoprolol Tartrate 50 mg PO DAILY 09/16/24 - Past Medical/Surgical History Diabetic: No -: narcolepsy 1992 -: sleep apnea dx 2006 -: TIA -: hypothyroidism -: HTN -: Migraines -: -: hysterectomy -: appendectomy -: gallbladder removal -: PFO enclosure - Social History Smoking Status: Former smoker Alcohol use: No CD- Drugs: No Caffeine use: No Place of Residence: Home Review of Systems 10-point ROS is otherwise unremarkable Physical Examination Temp Pulse Resp BP Pulse Ox 97.5 F 66 14 139/68 97 09/17/24 13:18 09/17/24 13:18 09/17/24 13:18 09/17/24 13:18 09/17/24 13:18 General: Alert, In no apparent distress HEENT: Atraumatic, PERRLA, Mucous membr. moist/pink, EOMI, Sclerae nonicteric Neck: Supple, 2+ carotid pulse no bruit, No LAD, Without JVD or thyroid abnormality Respiratory: Clear to auscultation bilaterally, Normal air movement Cardiovascular: Regular rate/rhythm, Normal S1 S2 Gastrointestinal: Normal bowel sounds, No tenderness Musculoskeletal: No tenderness Integumentary: No rashes Neurological: Normal gait, Normal speech, Normal tone, Normal affect Lymphatics: No axilla or inguinal lymphadenopathy Laboratory Data (last 24 hrs) 1009/16/24 09/16/24 05:59 22:38 19:17 WBC Hgb Hct Plt Count PT 11.3 INR 1.01 Sodium Potassium BUN Creatinine Glucose Phosphorus 4.2 Magnesium 2.2 Cancelled Total Bilirubin AST ALT Alkaline Phosphatase Triglycerides 198 H Cholesterol 216 H HDL Cholesterol 47 Cholesterol/HDL Ratio 4.60 Lipase 09/16/24 09/16/24 19:17 19:17 WBC 6.40 Hgb 13.3 Hct 39.3 Plt Count 225 PT INR Sodium 136 Potassium 4.0 BUN 15 Creatinine 0.79 Glucose 117 H Phosphorus Magnesium 2.1 Total Bilirubin 0.2 AST 19 ALT 35 Alkaline Phosphatase 131 H Triglycerides Cholesterol HDL Cholesterol Cholesterol/HDL Ratio Lipase 63 - Problems (1) Chest pain Current Visit: Yes Status: Acute Plan: most likely secondary to high BP, Troponin are negative so far NPO after midnight for exercise nuclear stress test (cardiolite) in am Echo ASA 81 mg daily Lipitor 40 mg daily (2) Hyperlipidemia Current Visit: Yes Status: Acute Plan: patient with high cholestrol and LDL Start Lipitor 40 mg daily re check lipid panel in 6-8 weeks (3) Hypertensive emergency Current Visit: Yes Status: Acute Plan: Continue lopressor 50 mg po BID Add HCTZ 25 mg daily
--- NOTE | 2024-09-17 15:02 | EKG ---
Test Date: 2024-09-16 Test Time: 18:48:15 Resident Care Aide: NICHOLE MEASUREMENT RESULTS: Intervals: Rate: 76 IL: 162 QRSD: 86 QT: 390 QTc: 438 [place]: P: 37 IL: 162 QRS: -8 T: 57 INTERPRETIVE STATEMENTS: Normal sinus rhythm Normal ECG Compared to ECG 03/09/2023 11:59:25 No significant changes Electronically Signed On 09-17-24 15:02:09 CDT by Justin Posey
[2024-09-17] MEDS: ATORVASTATIN 40 MG TAB PO SCH (20:22)
[2024-09-18 08:39] VITALS: O2SAT 99
[2024-09-18] MEDS ORDERED: hydroCHLOROthiazide 25 MG TAB PO SCH (09:00)
--- NOTE | 2024-09-18 13:08 | P.PN ---
Subjective Date of Service: 09/18/24 Chief Complaint: chest pain Subjective: No new changes, No C/O voiced, Tolerating diet, Ambulating, Improving Review of Systems 10-point ROS is otherwise unremarkable Physical Examination - Vital Signs Temperature: 98.1 F Blood Pressure: 142/72 Pulse: 81 Respirations: 16 Pulse Ox (%): 97 - Physical Exam General: Alert, In no apparent distress HEENT: Atraumatic, PERRLA, EOMI Neck: Supple, JVD not distended Respiratory: Clear to auscultation bilaterally, Normal air movement Cardiovascular: Regular rate/rhythm, Normal S1 S2 Gastrointestinal: Normal bowel sounds, No tenderness Musculoskeletal: No tenderness Integumentary: No rashes Neurological: Normal speech, Normal tone, Normal affect Lymphatics: No axilla or inguinal lymphadenopathy - Studies Medications List Reviewed: Yes Assessment And Plan - Current Problems (Diagnosis) (1) Chest pain Current Visit: Yes Status: Acute Plan: most likely secondary to high BP, Troponin are negative so far pending exercise nuclear stress test (cardiolite) Echo shows normal LV systolic and diastolic function ASA 81 mg daily Lipitor 40 mg daily (2) Hyperlipidemia Current Visit: Yes Status: Acute Plan: patient with high cholestrol and LDL Start Lipitor 40 mg daily re check lipid panel in 6-8 weeks (3) Hypertensive emergency Current Visit: Yes Status: Acute Plan: Continue lopressor 50 mg po BID HCTZ 25 mg daily lasix 20 mg daily
--- NOTE | 2024-09-18 13:46 | ECHO ---
HEIGHT: 5 ft 5 in WEIGHT: 180 lb 14.4 oz DATE OF STUDY: 09/18/[address]: Prince Abdiel Clements MD 2-DIMENSIONAL: YES M.MODE: YES DOPPLER: YES COLOR FLOW: YES TDS: PORTABLE: YES DEFINITY: BUBBLE STUDY: DIAGNOSIS: CHEST PAIN CARDIAC HISTORY: CATHERIZATION: NO SURGERY: NO PROSTHETIC VALVE: NO PACEMAKER: NO MEASUREMENTS (cm) DIASTOLIC (NORMALS) SYSTOLIC (NORMALS) IVSd 1.2 (0.6-1.2) LA Diam 2.8 (1.9-4.0) LVEF 60-65% LVIDd 4.7 (3.5-5.7) LVIDs 2.9 (2.0-3.5) %FS 39% LVPWd 1.2 (0.6-1.2) Ao Diam 3.1 (2.0-3.7) 2 DIMENSIONAL ASSESSMENT: RIGHT ATRIUM: NORMAL LEFT ATRIUM: NORMAL RIGHT VENTRICLE: NORMAL LEFT VENTRICLE: MILD LEFT VENTRICULAR HYPERTROPHY TRICUSPID VALVE: TRACE TRICUSPID REGURGITATION MITRAL VALVE: NORMAL PULMONIC VALVE: NORMAL AORTIC VALVE: NORMAL PERICARDIAL EFFUSION: NONE AORTIC ROOT: NORMAL LEFT VENTRICULAR WALL MOTION: NORMAL DOPPLER/COLOR FLOW: NORMAL COMMENTS: 1. NORMAL LEFT VENTRICULAR SYSTOLIC FUNCTION, EJECTION FRACTION 60-65%, NORMAL WALL MOTION 2. NORMAL DIASTOLIC FUNCTION 3. NORMAL FILLING PRESSURE TECHNOLOGIST: NOE LEIGH
[2024-09-18] MEDS ORDERED: REGADENOSON 0.4 MG/5 ML SYR IV ONE (14:16)
[2024-09-18] MEDS ORDERED: HYDRALAZINE HCL 20 MG/ML VIAL ONE (14:20)
--- NOTE | 2024-09-18 15:31 | RAD REPORT ---
EXAM :Rest Stress Cardiac Imaging CLINICAL HISTORY: Chest pain TECHNIQUE: Rest images: 7.9 mCi technetium 99m sestamibi administered intravenously. Stress images: 21 mCi of technetium 99m sestamibi administered intravenously. Cardiac SPECT images obtained COMPARISON: None. FINDINGS: The entire left ventricular myocardium demonstrates homogeneous radiotracer uptake on stress images Diminished radiotracer activity involving the left ventricular myocardium on rest images probably alexander hnical in nature. Left ventricular ejection fraction equals 80% IMPRESSION: No evidence of stress-induced ischemia
[2024-09-18] MEDS: hydroCHLOROthiazide 25 MG TAB PO SCH (16:25)
[2024-09-18 20:53] VITALS: BP 120/63; TEMP 97.9
--- NOTE | 2024-09-19 06:50 | TREADPHA ---
DX: CHEST PAIN Date of Study: 09/18/2024 Ht: 5' 5 " Wt: 180 lb 14.4 oz Consulting Physician: ZOIE MEDICATIONS: FIORICET, PROVENTIL, ASPIRIN, LIPITOR, LASIX, APRESOLINE, HYDRODIURIL, ATROVENT, ROBAXIN, LOPRESSOR, NITROSTAT, ZOFRAN HISTORY: 69 YEAR OLD FEMALE WITH COMPLIANTS OF CHEST PAIN. HISTORY OF SLEEP APNEA, TRANSIENT ATTACK, HYPROTHYROID, HYPERTENSION, NON SMOKER, NON DRINKER. PHYSICIAL EXAMINATION: RESTING B.P.: 195/71 RESTING H.R.: 90 RESTING EKG: SINUS RHYTHM PROTOCOL: PHARMACOLOGIC EXERCISE TIME: 3:30 B.P. AT PEAK STRESS: 177/72 IMPRESSION: LEXISCAN INJECTED FOLLOWED BY CARDIOLITE PER PROTOCOL. SEE NUCLEAR MEDICINE REPORT. PATIENT HAD OCCASIONAL PREMATURE VENTRICULAR COMPLEXES. NO SUPRAVENTRICULAR TACHYCARDIA, VENTRICULAR TACHYCARDIA, PREMATURE ATRIAL COMPLEXES. NO CHEST PAIN. PATIENT REPORTED CHEST PRESSURE.
== END 2024-09-18 20:00 | disposition home or self-care (01) | DRG 305 ==
LOC: ER 18:29 → 2ND 21:48 → ERHOLD 22:05 → 4TH 22:14 → OBSVTOIN 09-17 13:21
PROVIDERS: ADMIT Internal Medicine; ATTEND Hospitalist
DX: I16.1 Hypertensive emergency (principal); I10 Essential (primary) hypertension; E03.9 Hypothyroidism, unspecified; E78.5 Hyperlipidemia, unspecified; G47.33 Obstructive sleep apnea (adult) (pediatric); I25.10 Atherosclerotic heart disease of native coronary artery without angina pectoris; R60.0 Localized edema; Z79.82 Long term (current) use of aspirin; Z90.49 Acquired absence of other specified parts of digestive tract; Z86.73 Personal history of transient ischemic attack (TIA), and cerebral infarction without residual deficits; Z79.899 Other long term (current) drug therapy; Z90.710 Acquired absence of both cervix and uterus; Z91.148 Patient's other noncompliance with medication regimen for other reason; Z87.891 Personal history of nicotine dependence
CPT/HCPCS: 36415; 71045; 71275; 74175; 78452; 80048; 80061; 80076; 81001; 82947; 83036; 83690; 83735; 83880; 84100; 84484; 85025; 85379; 85610; 93005; 93017; 93306; 94640; 96361; 96374; 96375; 99285; A9500; G0378; J0360; J1650; J2405; J2785; J7030; J7613; J7644; Q9967

== ENCOUNTER 2025-08-22 22:37 | Emergency (ER) | payer OTHER ==
--- OUTSIDE RECORDS SUMMARY | 2025-08-22 22:40 | XMS REPORT | Continuity of Care Document ---
Author Name Unknown Address [address] [place] [address] [address] [place] Address [address] [place] [address] Care Team Providers Care Cement Mixer Driver Name Role Phone Lilibeth DALEY, Swapnil Desir Primary Care Physician BROOK SAUNDERS Attending Clinician Unavail jan Jones MD, Stacia Cobb Attending Clinician + [phone] Vernon Montoya MD Attending Clinician [phone] [place] DALEY, Brook Dennison Attending Clinician [phone] System, Provider Not In Attending Clinician Unav ailable Payers Payer Name Policy Type Policy Number Effective Date Expirati on Date Source [employer] MEDICARE OON Medicare [id number] 2022 00:00:00 Allergies, Adverse Reactions, Alerts Allergy Name Allergy Type Status Severity Reaction(s) Onset Date Inactive Date Treating Clinician Comments Source tramadol Propensi ty to adverse reaction to drug Active 04-20 00:00: 00 Daniel Butterfield Social History Social Habit Start Date Stop Date Quantity Comments Source Gender identity 2024-02-13 06:15:05 Identifies as female gender (finding) [facility] [employer] ASSERTION Possible Dewayne Frankel Sexual orientation [facility] Sex 2024-02-13 06:15:05 2024-02-13 06:15:05 Female (finding) Dewayne Frankel Smoking Status Start Date Stop Date Source Tobacco smoking consumption unknown [facility] Medications Ordered Medication Name Filled Medication Name Start Date Stop Date Current Medication? Ordering Clinician Indication Dosage Frequency Signature (SIG) Comments Components Source HYDROcodone -acetaminop hen (Elsah) 5-325 MG per tablet 1 tablet HYDROcodone -acetaminop hen (Elsah) 5-325 MG per tablet 1 tablet 05-26 20:45: 00 05-26 21:09 :00 No 1{tbl} 1 tablet, Oral, Once, On 05/26/25 at 2045, For 1 dose Zack Frankel acetaminoph en (Tylenol) tablet 650 mg acetaminoph en (Tylenol) tablet 650 mg 05-26 11:45: 00 05-26 11:45 :00 No 650mg 650 mg, Oral, Once, On 05/26/25 at 1145, For 1 dose, Max acetaminop hen = 4000mg/day (4gm/day) Zack Frankel iohexol (OMNIPaque) 350 MG/ML injection 50 mL iohexol (OMNIPaque) 350 MG/ML injection 50 mL 05-26 08:13: 42 05-26 08:13 :00 No 50mL 50 mL, Intravenou s, Once in imaging, Starting on 05/26/25 at 0813, For 1 dose Zack Frankel fluticasone propionate 110 mcg/actuati on HFA aerosol inhaler 04-23 00:00: 00 Yes 1mcg/ac tuation Daniel Butterfield furosemide 20 mg tablet 04-16 00:00: 00 Yes mg Daniel Butterfield bupropion HCl XL 150 mg 24 hr tablet, extended release 04-16 00:00: 00 Yes mg Daniel Butterfield methocarbam ol 750 mg tablet 04-15 00:00: 00 Yes mg Daniel Butterfield metoprolol tartrate 50 mg tablet 04-15 00:00: 00 Yes mg Daniel Butterfield SOCIAL SERVICE AGENCY DIRECTOR Thyroid 120 mg tablet 04-12 00:00: 00 Yes mg Daniel Butterfield losartan 50 mg tablet 04-09 00:00: 00 Yes mg Daniel Butterfield lorazepam 0.5 mg tablet 04-05 00:00: 00 Yes mg Daniel Butterfield butalbital- acetaminoph en-caffeine 50 mg-325 mg-40 mg tablet 03-28 00:00: 00 Yes mg Daniel Butterfield methocarbam ol 750 mg tablet 03-16 00:00: 00 Yes mg Daniel Butterfield budesonide 0.5 mg/2 mL suspension for nebulizatio n 12-18 00:00: 00 Yes mg/2 mL Daniel Butterfield potassium chloride ER 10 mEq tablet,exte nded release(par t/cryst) 2023-11 00:00: 00 Yes mEq Daniel Butterfield Vital Signs Vital Name Observation Time Observation Value Comments S rosanna Systolic blood pressure 2025-05-26 21:00:00 177 mm[Hg] [facility] Diastolic blood pressure 2025-05-26 21:00:00 94 mm[Hg] [facility] Heart rate 2025-05-26 21:00:00 86 /[facility] 2025-05-26 21:00:00 18 /min [facility] Oxygen saturation in Arterial blood by Pulse oximetry 2025-05-26 21:00:00 97 /min [facility] Body temperature 2025-05-26 19:48:00 36.61 Hallie [facility] Body height 2025-05-26 00:56:00 165.1 cm [facility] Body weight 2025-05-26 00:56:00 87.091 kg [facility] BMI 2025-05-26 00:56:00 31.95 kg/m2 [facility] Systolic blood pressure 2025-05-26 21:00:00 177 mm[Hg] [facility] Diastolic blood pressure 2025-05-26 21:00:00 94 mm[Hg] [facility] Heart rate 2025-05-26 21:00:00 86 /min [facility] Res[facility] rate 2025-05-26 21:00:00 18 /min [facility] Oxygen saturation in Arterial blood by Pulse oximetry 2025-05-26 21:00:00 97 /min [facility] Body temperature 2025-05-26 19:48:00 36.61 Hallie [facility] Body height 2025-05-26 00:56:00 165.1 cm [facility] Body weight 2025-05-26 00:56:00 87.091 kg [facility] BMI 2025-05-26 00:56:00 31.95 kg/m2 [facility] Heart Rate 2025-04-23 11:13:00 61.00 /min Almita Butterfield Respiratory Rate 2025-04-23 11:13:00 Daniel Butterfield BP Systolic 2025-04-23 11:13:00 154 mm[Hg] Chandler Butterfield BP Diastolic 2025-04-23 11:13:00 69 mm[Hg] Cesar Butterfield Weight Measured 2025-04-23 11:13:00 191.20 pounds Daniel Butterfield Height Measured 2025-04-23 11:13:00 65.00 inches Daniel Butterfield Body Temperature 2025-04-23 11:13:00 97.90 degrees Daniel Butterfield Procedures Procedure Date / Time Performed Performing Clinicia n Source XR CERVICAL SPINE 2-3 VIEWS 2025-05-26 14:52:00 Familia Avalos [facility] CT ANGIOGRAM NECK 2025-05-26 08:13:14 Vernon Montoya [facility] Encounters Start Date/Time End Date/Time Encounter Type Admission Type Attending Clinicians Care Facility Care Department Encounter ID Source 2025-05-26 00:57:00 2025-05-26 22:04:00 Emergency Emergency BROOK SAUNDERS [facility] General Medicine [id number] [facility] 2025-05-26 00:57:00 2025-05-26 22:04:00 Emergency Stacia Jones Nicolas Miller, Sara Kathryn [facility] [id number] [facility] 2025-05-26 00:00:00 2025-05-26 02:39:51 Orders Only System, Provider Not In [facility] [id number] Zack Gilmore Epic 2025-05-26 02:56:36 2025-05-25 23:59:00 Outpatient [facility] [id number] [facility] 2025-05-26 02:56:36 2025-05-25 23:59:00 Outpatient [facility] [id number] [facility] 2025-05-26 02:50:47 2025-05-25 23:59:00 Outpatient [facility] [id number] [facility] 2025-05-26 02:49:08 2025-05-25 23:59:00 Outpatient [facility] [id number] [facility] 2025-05-26 02:44:56 2025-05-25 23:59:00 Outpatient [facility] [id number] [facility] 2025-05-26 02:39:51 2025-05-25 23:59:00 Outpatient [facility] [id number] [facility] 2025-04-23 11:07:41 2025-04-23 11:07:41 Outpatient [facility] [id number] Daniel Butterfield 2025-04-23 00:00:00 2025-04-23 00:00:00 Outpatient Visit [facility] [id number] Daniel F Scout Notes Date/Time Note Provider Source 2025-05-26 22:05:05 [facility] 2025-05-26 22:05:05 Aneesh Reardon MD - 05/26/2025 7:32 PM CDT ORS Spine Brief Note Upright imaging of cervical spine on 05/26 reviewed and found to be stable. - Spine precautions: None - Mobilization as tolerated - Ok for DVT ppx per primary team - Pending ORS Spine Surgeries: None No further ORS Spine intervention. Ok for discharge once cleared by primary team. Please follow up with prior spine surgeon or PCP. Please Epic message with questions. Please call [phone]) for emergencies. Please page ORS Spine resident through the liquefied natural gas plant operator for any questions. Aneesh Reardon, PGY-3 Orthopedic Surgery [facility]2025-07-05 22:05:05 Diagnosis Fall, initial encounter - Pr reshma [id number] 22:05:05 [id number] 02:39:59 [id number] 00:00:00 Daniel Antunez [facility]
[2025-08-23] MEDS ORDERED: ONDANSETRON 4 MG/2 ML VIAL ONE (00:21)
[2025-08-23] MEDS ORDERED: MORPHINE 4 MG/ML SYR ONE ×2 (00:22→02:05)
[2025-08-23] MEDS ORDERED: HYDRALAZINE HCL 20 MG/ML VIAL ONE (00:22)
[2025-08-23 01:12] LABS: Absolute Lymphocytes (CBC) 2.4 K/uL (0.7-4.9); Hematocrit 37.1 % (36.0-45.0); Hemoglobin 12.8 g/dL (12.0-15.0); MCH 30.7 pg (27.0-35.0); MCHC 34.6 g/dL (32.0-36.0); MCV 88.8 fL (80-100); MPV 8.1 fL (7.6-11.3); Nucleated RBC Absolute Count 0.0 (0-0); Nucleated Red Blood Cells % 0.1 % (0-0); RBC Red Blood Cell Count 4.18 M/uL (3.86-4.86); White Blood Count 5.80 thou/uL (4.3-10.9)
[2025-08-23 01:29] LABS: Anion Gap 7.1 mEq/L (5.0-15.0); BUN Blood Urea Nitrogen 12.0 mg/dL (7-18); Glucose Level 110.0 mg/dL (74-106); Magnesium 2.2 mg/dL (1.6-2.4); Potassium 4.1 mEq/L (3.5-5.1); Troponin High Sensitivity 7.6 pg/mL (<58.9)
--- NOTE | 2025-08-23 03:38 | EDPHYS ---
Physician Documentation [facility] Name: Morenita Willingham Age: 70 yrs Sex: Female : 1955 Arrival Date: 08/22/2025 Time: 22:37 Bed 23 Private MD: ED Physician Abilio Robins HPI: 08/23 00:17 This 70 yrs old Female presents to ER via Ambulatory with complaints of High kb Blood Pressure. 00:17 Patient is a 70-year-old female who presents for chronic neck pain and hypertension. kb States she has chronic pain to her neck but there are times that it is worse than others. States that the pain has been bad today and has been causing her blood pressure to be elevated. States she called her doctor and was told to double up on her metoprolol but is not come down. Has an appointment with her neurosurgeon in 2 days for the chronic neck pain.. Historical: - Allergies: 08/22 23:15 No Known Allergies; br2 - PMHx: 23:15 Hypertension; Hypothyroidism; Migraines; narcolepsy (Unknown); Sleep Apnea; leg br2 swelling (Unknown); - PSHx: 23:15 cardiac ablasion; Neck sx; Tonsillectomy; br2 - Immunization history:: Adult Immunizations not up to date. - Infectious Disease History:: Denies. - Social history:: Smoking status: Patient/guardian denies using tobacco, Patient/guardian denies using alcohol, street drugs. ROS: 08/23 00:17 Constitutional: As per HPI kb Exam: 00:17 Constitutional: This is a well developed, well nourished patient who is awake, alert, kb and in no acute distress. Head/Face: Normocephalic, atraumatic. ENT: Moist Mucous membranes Neck: Trachea midline and no cervical lymphadenopathy. Supple, full range of motion without nuchal rigidity, or vertebral point tenderness. No Meningismus. Cardiovascular: Regular rate Respiratory: Respirations even and unlabored. No increased work of breathing. Talking in full sentences Skin: Warm, dry with normal turgor. Normal color. MS/ Extremity: Pulses equal, no cyanosis. Neurovascular intact. Full, normal range of motion. Neuro: Awake and alert, GCS 15, oriented to person, place, time, and situation. Vital Signs: 08/22 23:09 BP 182 / 93; Pulse 66; Resp 18; Temp 97.1(TE); Pulse Ox 100% on R/A; Weight 88.9 kg; br2 Height 5 ft. 5 in. ; Pain 5/10; 08/23 00:00 BP 186 / 81; Pulse 64; Resp 20; Pulse Ox 96% ; jj7 00:56 BP 171 / 86; Pulse 60; Resp 20; Pulse Ox 98% ; jj7 02:00 BP 151 / 85; Pulse 55; Resp 20; Pulse Ox 99% ; Pain 6/10; jj7 03:00 BP 153 / 88; Pulse 58; Resp 20; Pulse Ox 96% ; Pain 2/10; jj7 03:45 BP 165 / 84; Pulse 55; Resp 20; Temp 98.4; Pulse Ox 99% ; jj7 08/22 23:09 Body Mass Index 32.62 (88.90 kg, 165.1 cm) br2 08/22 23:09 Pain Scale: Adult br2 02:00 Pain Scale: Adult jj7 03:00 Pain Scale: Adult jj7 MDM: 08/22 23:18 Medical Screening Exam initiated kb 08/23 00:19 Differential diagnosis: hypertensive crisis, Malignant HTN, Chronic pain. Data kb reviewed: vital signs, nurses notes. 01:57 Transition of care: After a detail discussion of the patient's case, care is kb transferred to [facility]. 03:39 Data reviewed: vital signs, nurses notes, lab test result(s), EKG, radiologic studies. tt7 ED course: 70-year-old female with hypertension and some chronic neck pain, hypertensive on arrival but reassuring physical exam and overall stable, standard cardiac workup was ordered, patient given blood pressure medications, pain medications, EKG nonischemic, chest x-ray without acute findings, serial troponins were ordered and negative, after completion of the patient's emergency department evaluation, I do not suspect a life-threatening or disabling process. Patient is medically stable and not in need of emergent medical intervention. I had a detailed discussion with the patient regarding the historical points, exam findings, emergency department evaluation, diagnostic results, and the discharge diagnosis. I instructed the patient on outpatient management of their condition. I discussed the need for outpatient follow-up with a primary care physician. I informed the patient on return precautions, including the need to return to the ED if symptoms do not improve, worsen, or if there are any questions or concerns that arise at home. The patient was discharged in stable condition. 08/23 00:10 Order name: Basic Metabolic Panel; Complete Time: 01:31 kb 08/23 00:10 Order name: CBC with Diff; Complete Time: 01:14 kb 08/23 00:10 Order name: Magnesium; Complete Time: :31 kb 08/23 00:10 Order name: Troponin HS; Complete Time: :31 kb 08/23 02:29 Order name: Troponin High Sensitivity; Complete Time: 03:21 tt7 08/23 00:10 Order name: XRAY Chest (1 view) kb 08/23 00:10 Order name: Cardiac monitoring; Complete Time: 00:51 kb 08/23 00:10 Order name: EKG - Nurse/Tech; Complete Time: 01:22 kb 08/23 00:10 Order name: IV Saline Lock; Complete Time: 00:51 kb 08/23 00:10 Order name: Labs collected and sent; Complete Time: 00:51 kb 08/23 00:10 Order name: O2 Per Protocol; Complete Time: 00:51 kb 08/23 00:10 Order name: O2 Sat Monitoring; Complete Time: 00:51 kb Administered Medications: 00:50 Drug: Ondansetron IVP 4 mg IVP once; over 2 minutes Route: IVP; Site: right antecubital;jj7 01:22 Follow up: Response: Marked relief of symptoms br2 00:50 Drug: hydrALAZINE IVP 5 mg IVP once Route: IVP; Site: right antecubital; jj7 02:07 Follow up: Response: Blood pressure is lowered jj7 00:51 Drug: morphine IVP or IV 4 mg IVP once over 4 mins Route: IVP; Infused Over: 4 mins; jj7 Site: right antecubital; 01:22 Follow up: Response: Marked relief of symptoms; Pain is decreased br2 02:07 Drug: morphine IVP or IV 4 mg IVP once over 4 mins Route: IVP; Infused Over: 4 mins; jj7 Site: right antecubital; 02:30 Follow up: Response: Marked relief of symptoms; Pain is decreased jj7 Disposition: 03:41 Co-signature as Attending Physician, Abilio Robins DO. I reviewed the patient's care tt7 provided by Advanced Practice Provider \T\ agree w/ the diagnosis \T\ care plan. I personally saw the pt \T\ performed a substantive portion of the visit, incldng all aspects of the (History/Exam/Medical Decision Making). Disposition Summary: 08/23/25 03:37 Discharge Ordered Notes: Location: Home tt7 Problem: new tt7 Symptoms: have improved tt7 Condition: Stable tt7 Diagnosis - Chest pain, unspecified tt7 - Essential (primary) hypertension tt7 Followup: tt7 - With: Emergency Department - When: As needed - Reason: Followup: tt7 - With: Private Physician - When: 1 - 2 days - Reason: Recheck today's complaints, Re-evaluation by your physician Discharge Instructions: - Discharge Summary Sheet tt7 - Nonspecific Chest Pain, Adult, [place]-an-Sufo tt7 - Managing Your Hypertension tt7 Forms: - Medication Reconciliation Form tt7 - Antibiotic Education tt7 - Prescription Opioid Use tt7 - Patient Portal Instructions tt7 - Leadership Thank You Letter tt7 Signatures: Dispatcher [employer] EDMS Mary Kasper, SECURITY BUSINESS ANALYST-C SECURITY BUSINESS ANALYST-Jose Juan Cleveland RN RN jj7 Maliha Watson RN RN br2 Abilio Robins DO DO tt7 Corrections: (The following items were deleted from the chart) 00:11 00:10 Chest Single View+RAD.RAD.BRZ ordered. EDMS EDMS 02:29 02:29 Troponin High Sensitivity+C.LAB.BRZ ordered. EDMS EDMS
--- NOTE | 2025-08-23 03:38 | ER ---
Nurse's Notes [facility] Name: Morenita Willingham Age: 70 yrs Sex: Female : 1955 Arrival Date: 08/22/2025 Time: 22:37 Bed 23 Private MD: Diagnosis: Chest pain, unspecified;Essential (primary) hypertension Presentation: 08/22 23:09 Chief complaint: Patient states: PT STATES SHE TOOK B/P PRIOR TO TAKING MEDS AND IT WAS br2 ELEVATED 174/88...PT CALLED PCP AND WAS TOLD TO TAKE 2 EXTRA METOPROLOL 50MG DUE TO ELEVATED B/P. PT STATES SHE HAS BEEN DEALING WITH CHRONIC NECK PAIN SINCE MAY. Coronavirus screen: Client denies travel out of the [place] in the last 14 days. Ebola Screen: Patient denies exposure to infectious person. Initial Sepsis Screen: Does the patient meet any 2 criteria? No. Patient's initial sepsis screen is negative. Does the patient have a suspected source of infection? No. Patient's initial sepsis screen is negative. Risk Assessment: Do you want to hurt yourself or someone else? Patient reports no desire to harm self or others. Onset of symptoms was August 19, 2025. 23:09 Method Of Arrival: Ambulatory br2 23:09 Acuity: MICHELLE 3 br2 Triage Assessment: 23:15 General: Appears in no apparent distress. comfortable, Behavior is calm, cooperative. br2 Pain: Complains of pain in scalp Pain does not radiate. Pain currently is 6 out of 10 on a pain scale. Historical: - Allergies: 23:15 No Known Allergies; br2 - PMHx: 23:15 Hypertension; Hypothyroidism; Migraines; narcolepsy (Unknown); Sleep Apnea; leg br2 swelling (Unknown); - PSHx: 23:15 cardiac ablasion; Neck sx; Tonsillectomy; br2 - Immunization history:: Adult Immunizations not up to date. - Infectious Disease History:: Denies. - Social history:: Smoking status: Patient/guardian denies using tobacco, Patient/guardian denies using alcohol, street drugs. Screenin/02 00:00 [facility] ED Fall Risk Assessment (Adult) History of falling in the last 3 months, jj7 including since admission Yes- single mechanical fall (1 pt) Confusion or Disorientation No (0 pts) Intoxicated or Sedated No (0 pts) Impaired Gait No (0 pts) Mobility Assist Device Used No (0 pt) Altered Elimination No (0 pt) Score/Fall Risk Level 0 - 2 = Low Risk Oriented to surroundings, Maintained a safe environment, Educated pt \T\ family on fall prevention, incl call for assistance when getting out of bed, Assessed \T\ reinforced patient's understanding of fall precautions. Abuse screen: Denies threats or abuse. Nutritional screening: No deficits noted. Tuberculosis screening: No symptoms or risk factors identified. Assessment: 00:00 Reassessment: ASSUMED CARE OF PT. PT SITTING IN BED. NO DISTRESS NOTED. PT HAS CHRONIC jj7 NECK AND KNEE PAIN. STATES SHE TOOK MUSCLE RELAXERS, BUTALBITAL AND TYLENOL #3 TONIGHT FOR THE PAIN. SCALE 6/10. General: Appears in no apparent distress. comfortable, Behavior is calm, cooperative, appropriate for age. Pain: Complains of pain in right knee and left leg. Neuro: No deficits noted. Cardiovascular: No deficits noted. Respiratory: No deficits noted. GI: No deficits noted. : No deficits noted. EENT: No deficits noted. Derm: No deficits noted. Musculoskeletal: Reports pain in right leg, left leg and neck. Vital Signs: 08/22 23:09 BP 182 / 93; Pulse 66; Resp 18; Temp 97.1(TE); Pulse Ox 100% on R/A; Weight 88.9 kg; br2 Height 5 ft. 5 in. ; Pain 5/10; 08/23 00:00 BP 186 / 81; Pulse 64; Resp 20; Pulse Ox 96% ; jj7 00:56 BP 171 / 86; Pulse 60; Resp 20; Pulse Ox 98% ; jj7 02:00 BP 151 / 85; Pulse 55; Resp 20; Pulse Ox 99% ; Pain 6/10; jj7 03:00 BP 153 / 88; Pulse 58; Resp 20; Pulse Ox 96% ; Pain 2/10; jj7 03:45 BP 165 / 84; Pulse 55; Resp 20; Temp 98.4; Pulse Ox 99% ; jj7 08/22 23:09 Body Mass Index 32.62 (88.90 kg, 165.1 cm) br2 08/22 23:09 Pain Scale: Adult br2 02:00 Pain Scale: Adult jj7 03:00 Pain Scale: Adult jj7 ED Course: 08/22 22:41 Patient arrived in ED. sj2 23:14 Triage completed. br2 23:17 [facility] Kasper [facility]NP-C [facility] kb 23:17 Abilio Robins DO is Attending Physician. kb 08/23 00:00 Patient has correct armband on for positive identification. Bed in low position. Call jj7 light in reach. Side rails up X 1. Adult w/ patient. Provided Education on: USE OF CALL DEVINE. Client placed on continuous cardiac and pulse oximetry monitoring. NIBP monitoring applied. Warm blanket given. 00:17 Jose Juan Saldana, GARRETT is Primary Nurse. jj7 00:39 XRAY Chest (1 view) In Process Unspecified. EDMS 00:50 Inserted saline lock: 20 gauge in right antecubital area, using aseptic technique. jj7 Blood collected. Flushed with 10 mL NS. 00:51 Basic Metabolic Panel Sent. jj7 00:51 CBC with Diff Sent. jj7 00:51 Magnesium Sent. jj7 00:51 Troponin HS Sent. jj7 02:54 Troponin High Sensitivity Sent. br2 03:45 No provider procedures requiring assistance completed. IV discontinued, intact, jj7 bleeding controlled, No redness/swelling at site. Pressure dressing applied. 03:47 Arm band placed on right wrist. jj7 Administered Medications: 00:50 Drug: Ondansetron IVP 4 mg IVP once; over 2 minutes Route: IVP; Site: right antecubital;jj7 01:22 Follow up: Response: Marked relief of symptoms br2 00:50 Drug: hydrALAZINE IVP 5 mg IVP once Route: IVP; Site: right antecubital; jj7 02:07 Follow up: Response: Blood pressure is lowered jj7 00:51 Drug: morphine IVP or IV 4 mg IVP once over 4 mins Route: IVP; Infused Over: 4 mins; jj7 Site: right antecubital; 01:22 Follow up: Response: Marked relief of symptoms; Pain is decreased br2 02:07 Drug: morphine IVP or IV 4 mg IVP once over 4 mins Route: IVP; Infused Over: 4 mins; jj7 Site: right antecubital; 02:30 Follow up: Response: Marked relief of symptoms; Pain is decreased jj7 Medication: 00:00 VIS not applicable for this client. jj7 Outcome: 03:37 Discharge ordered by MD. valdovinos 03:45 Discharged to home ambulatory, with significant other, jj7 03:45 Condition: improved 03:45 Discharge instructions given to patient, Instructed on discharge instructions, follow up and referral plans. Demonstrated understanding of instructions, follow-up care, 03:47 Patient left the ED. jj7 Signatures: Dispatcher [employer] EDMN Mary Kasper, ASPHALT HEATER OPERATOR-C YENNIFER-Jose Juan Cleveland RN RN jj7 Maliha Watson, RN RN br2 Michelle Barnes2 Abilio Robins DO DO tt7 Corrections: (The following items were deleted from the chart) 00:15 00:00 Reassessment: ASSUMED CARE OF PT. PT SITTING IN BED. NO DISTRESS NOTED jj7 jj7
[2025-08-23 04:23] VITALS: BP 165/84; TEMP 98.4; O2SAT 99
--- NOTE | 2025-08-23 05:12 | RAD REPORT ---
TIME OF STUDY: 08/23/2025 12:10 AM CDT REASON FOR EXAM: PALPITATIONS COMPARISON: None. FINDINGS: AP view of the chest was obtained, chest 1 view. Lungs: Normal lung volume. No mass, or consolidation. Normal pulmonary vascularity.. Vagal stimulat or is noted in the right thorax. Pleura: No pneumothorax. There is no pleural effusion. Heart and Mediastinum: Normal cardiomediastinal silhouette and great vessels.. Bones: No acute bony abnormality.. Cervical spine fixation hardware is noted. Degenerative changes are noted in the thoracic spine. IMPRESSION: 1. No acute cardiopulmonary process. Electronically signed by: Isiah Tavares MD 08/23/2025 01:00 AM CDT RP Due to temporary technical issues with the PACS/[employer] reporting system, reports are being marielos d by the in-house radiologist without review as a courtesy to ensure prompt reporting the interpreting radiologist is fully responsible for the content of the report. Transcribed Date/Time: 08/23/2025 5:12 AM
== END 2025-08-23 03:47 | disposition home or self-care (01) ==
LOC: ER 22:37
DX: R07.9 Chest pain, unspecified (principal); I10 Essential (primary) hypertension; M54.2 Cervicalgia
CPT/HCPCS: 93005; 85025; 80048; 36415; 83735; 84484 ×2; 71045; 96375; 96374; 99284; J0360; J2405